=== PATIENT | female | born 1990 | race Caucasian/White ===

== ENCOUNTER 2022-09-11 07:43 | Inpatient (IN) ==
[2022-09-11] MEDS: methylPREDNISolone SOD SUCC 1,000 MG in NS 0.9% 250 ml 250 ML IVPB SCH (12:13)
[2022-09-12 06:21] LABS: Hematocrit 39.3 % (35-45); Hemoglobin 13.3 g/dL (11.5-14.3); Mean Corpuscular Hemoglobin 30.7 pg (27-33); Mean Corpuscular Hgb Conc 33.9 g/dL (31-36); Mean Corpuscular Volume 90.7 fL (80-97); Mean Platelet Volume 9.7 fL (7.5-11.2); Platelet Count 243 10^3/uL (150-450); Red Blood Count 4.34 10^6/uL (3.63-4.92); Red Cell Distribution Width 14.7 % (12-17); White Blood Count 8.7 10^3/uL (3.8-11.8)
[2022-09-12 07:01] LABS: Calcium 9.3 mg/dL (8.6-10.3); Creatinine, Serum 0.58 mg/dL (0.51-0.95); Magnesium 2.3 mg/dL (1.9-2.7); Potassium 4.3 mmol/L (3.5-5.0); eGFR CKD-EPI 121.7 (>60)
[2022-09-12] MEDS: methylPREDNISolone SOD SUCC 1,000 MG in NS 0.9% 250 ml 250 ML IVPB SCH (09:36)
[2022-09-12] MEDS ORDERED: Cholecalciferol (VIT D3) 1,000 unit TAB PO ONE (14:45)
[2022-09-13 06:16] LABS: ABS Lymphocytes 0.8 10^3/uL (1.0-4.8); ABS Monocytes 0.5 10^3/uL (0.0-0.9); ABS Neutrophils 13.8 10^3/uL (1.5-7.6); Hematocrit 35.8 % (35-45); Hemoglobin 11.9 g/dL (11.5-14.3); Lymphocyte % 5.4 %; Mean Corpuscular Hemoglobin 30.1 pg (27-33); Mean Corpuscular Hgb Conc 33.3 g/dL (31-36); Mean Corpuscular Volume 90.3 fL (80-97); Mean Platelet Volume 10.8 fL (7.5-11.2); Platelet Count 229 10^3/uL (150-450); Red Blood Count 3.96 10^6/uL (3.63-4.92); Red Cell Distribution Width 15.1 % (12-17); White Blood Count 15.2 10^3/uL (3.8-11.8)
[2022-09-13 06:27] LABS: Calcium 9.3 mg/dL (8.6-10.3); Creatinine, Serum 0.7 mg/dL (0.51-0.95); Magnesium 2.5 mg/dL (1.9-2.7); Potassium 4.6 mmol/L (3.5-5.0); eGFR CKD-EPI 116.3 (>60)
[2022-09-13] MEDS ORDERED: Cholecalciferol (VIT D3) 1,000 unit TAB PO SCH (09:00)
[2022-09-13] MEDS ORDERED: methylPREDNISolone SOD SUCC 1,000 MG in NS 0.9% 250 ml 250 ML IVPB SCH (09:00)
[2022-09-13] MEDS ORDERED: Gadoteridol (CONTRAST) 279.3 MG/ML 10 ML IV ONE (13:29)
[2022-09-13 14:22] VITALS: BP 116/69
[2022-09-13 14:57] LABS: SS-A/Ro Antibody <0.2 U; SS-B/La Antibody <0.2 U
[2022-09-20 22:01] LABS: NMO/AQP4 IgG Negative (Negative)
== END 2022-09-13 16:25 | disposition home or self-care (01) | DRG 60 ==
LOC: EDHOLD 07:43 → ED 07:43 → SUATTDRO 11:43 → EDHOLD 09-12 07:08 → MEDTELE 09-12 07:58 → MERGE 09-12 10:02
PROVIDERS: ADMIT Internal Medicine; ATTEND Internal Medicine